=== PATIENT | male | born 1950 | race Caucasian/White ===

== ENCOUNTER 2016-11-15 12:51 | Outpatient (CLI) | payer OTHER ==
[2016-11-15 13:13] LABS: CALCIUM 9.5 mg/dL (8.5-10.3); CREATININE 1.1 mg/dL (0.6-1.2); POTASSIUM 3.2 mmol/L (3.5-5.0)
== END 2016-11-15 12:52 | disposition home or self-care (01) ==
LOC: LAB 12:51
PROVIDERS: ATTEND Internal Medicine
DX: I10 Essential (primary) hypertension (principal)
CPT/HCPCS: 36415; 80048

== ENCOUNTER 2016-12-24 09:17 | Outpatient (CLI) | payer OTHER, MEDICARE | END 2016-12-24 09:18 | disposition home or self-care (01) | LOC: SC 09:17 | PROVIDERS: ATTEND Internal Medicine Pulmonary Disease | DX: G47.33 Obstructive sleep apnea (adult) (pediatric) (principal) | CPT/HCPCS: 99203; 99212 ==

== ENCOUNTER 2016-12-24 15:34 | Outpatient (CLI) | payer MEDICARE, OTHER ==
[2016-12-24 12:14] LABS: BUN - BLOOD UREA NITROGEN 33 mg/dL (6-20); CALCIUM 9.4 mg/dL (8.5-10.3); CARBON DIOXIDE - CO2 27 mmol/L (21-32); CHLORIDE 102 mmol/L (101-111); CHOL/HDL RATIO 5.2 (<5.0); CHOLESTEROL 160 mg/dL; CREATININE 1.3 mg/dL (0.6-1.2); GFR - MDRD 55 (>89); GLUCOSE 109 mg/dL (70-100); HDL CHOLESTEROL 31 mg/dL; LDL/HDL RATIO 3.1 (<3.6); POTASSIUM 3.9 mmol/L (3.5-5.0); SODIUM 137 mmol/L (135-145); TRIGLYCERIDES 171 mg/dL; VLDL CHOLESTEROL 34 mg/dL
== END 2016-12-24 15:35 | disposition home or self-care (01) ==
LOC: LAB.F 15:34
PROVIDERS: ATTEND Internal Medicine
DX: E87.6 Hypokalemia (principal); E78.00 Pure hypercholesterolemia, unspecified
CPT/HCPCS: 36415; 80048; 80061

== ENCOUNTER 2017-01-15 19:36 | Outpatient (CLI) | payer OTHER, MEDICARE | END 2017-01-15 19:37 | disposition home or self-care (01) | LOC: SC 19:36 | PROVIDERS: ATTEND Internal Medicine Pulmonary Disease | DX: G47.33 Obstructive sleep apnea (adult) (pediatric) (principal); R09.02 Hypoxemia; Z68.34 Body mass index [BMI] 34.0-34.9, adult | CPT/HCPCS: 95810 ==

== ENCOUNTER 2017-01-23 11:58 | Outpatient (CLI) | payer OTHER, MEDICARE ==
--- NOTE | 2017-01-24 09:15 | CT Report ---
CT SINUSES WITHOUT CONTRAST: 01/23/2017 CLINICAL INDICATION: Right eye pain, sinus pain. TECHNIQUE: Axial CT images of the paranasal sinuses were obtained without contrast, following which sagittal and coronal reconstructions were performed. In accordance with CT protocol optimization, one or more of the following dose reduction techniques w ere utilized for this exam: automated exposure control, adjustment of mA and/or KV based on patient size, or use of iterative reconstructive technique. FINDINGS: There is complete opacification of the right maxillary sinus and extensive opacification o f the anterior right ethmoid air cells. Extensive mucosal thickening is also present in the right fr ontal sinus. There is mild opacification of left anterior ethmoid air cells. Minimal mucosal thicke gloria is seen in the left frontal sinus. The left maxillary sinus and the sphenoid sinus appear unrem arkable. There is attenuation of the medial wall of the right maxillary sinus and right ethmoid air cells, suspicious for osseous erosion. The left ostiomeatal unit is patent. The visualized intraorb ital contents are unremarkable. IMPRESSION: EXTENSIVE RIGHT MAXILLARY, ETHMOID, AND FRONTAL SINUS DISEASE, WITH SOME OSSEOUS EROSION . JOB #: [id number] EXT JOB #:[id number]
== END 2017-01-23 11:59 | disposition home or self-care (01) ==
LOC: DI 11:58
PROVIDERS: ATTEND Physician Assistant Medical
DX: J32.8 Other chronic sinusitis (principal); M85.88 Other specified disorders of bone density and structure, other site
CPT/HCPCS: 70486

== ENCOUNTER 2017-02-07 13:59 | Outpatient (CLI) | payer MEDICARE, OTHER | END 2017-02-07 14:00 | disposition home or self-care (01) | LOC: SC 13:59 | PROVIDERS: ATTEND Internal Medicine Pulmonary Disease | DX: G47.33 Obstructive sleep apnea (adult) (pediatric) (principal) | CPT/HCPCS: 99212; 99213 ==

== ENCOUNTER 2017-02-26 12:53 | Outpatient (CLI) | payer OTHER ==
[2017-02-26 13:03] LABS: BASOPHILS # (AUTO) 0.1 10^3/uL (0.0-0.1); BASOPHILS % (AUTO) 0.6 %; EOSINOPHILS # (AUTO) 0.2 10^3/uL (0.0-0.7); HCT - HEMATOCRIT 39.7 % (42.0-52.0); HGB - HEMOGLOBIN 13.4 g/dL (14.0-18.0); LYMPHOCYTES # (AUTO) 3.3 10^3/uL (1.5-3.5); LYMPHOCYTES % (AUTO) 28.9 %; MEAN CORPUSCULAR HEMOGLOBIN 29.5 pg (27.0-31.0); MEAN CORPUSCULAR HGB CONC 33.7 g/dL (32.0-36.0); MEAN CORPUSCULAR VOLUME 87.4 fL (80.0-94.0); MEAN PLATELET VOLUME 6.8 fL (7.4-11.4); MONOCYTES # (AUTO) 0.9 10^3/uL (0.0-1.0); MONOCYTES % (AUTO) 7.5 %; NUCLEATED RED BLOOD CELLS AUTO 0.1 /100WBC; RED BLOOD COUNT 4.54 10^6/uL (4.70-6.10); RED CELL DISTRIBUTION WIDTH 13.9 % (12.0-15.0); UNCORRECTED WHITE BLOOD COUNT 11.4 x10^3/uL; WHITE BLOOD COUNT 11.4 x10^3/uL (4.8-10.8)
[2017-02-26 13:31] LABS: ALBUMIN/GLOBULIN RATIO 1.3 (1.0-2.2); BILIRUBIN,TOTAL 0.6 mg/dL (0.2-1.0); CALCIUM 9.5 mg/dL (8.5-10.3); CREATININE 1.3 mg/dL (0.6-1.2); POTASSIUM 3.7 mmol/L (3.5-5.0); TOTAL PROTEIN 7.4 g/dL (6.7-8.2)
== END 2017-02-26 12:54 | disposition home or self-care (01) ==
LOC: LAB 12:53
PROVIDERS: ATTEND Internal Medicine
DX: I10 Essential (primary) hypertension (principal)
CPT/HCPCS: 36415; 80053; 85025

== ENCOUNTER 2017-08-20 18:37 | Inpatient (IN) | payer MEDICARE, OTHER ==
[2017-08-20] MEDS ORDERED: SODIUM CHLORIDE 0.9% 1,000 ML IV ONE (19:03)
[2017-08-20] MEDS ORDERED: PANTOPRAZOLE 40 MG VIAL IVP STA (19:03)
--- NOTE | 2017-08-20 19:06 | ED Physician Documentation ---
History of Present Illness - Stated complaint Stated Complaint: LOW BLOOD PRESSURE - Chief complaint Chief Complaint: General - History obtained from History obtained from: Patient - History of Present Illness Timing: Other (He has a history of hypertension and sleep apnea. Starting about a week ago after being on Augmentin for wisdom tooth removal, maybe a day or 2 later, he started having loose but tarry and black stools. Over the last couple of days has developed orthostatic lightheadedness and when he is getting that lightheadedness he developed substernal chest pressure that lasts about 15 minutes at a time. He has no chest pain right now. He has noted low blood pressures at home, as low as 90/40.) Review of Systems Constitutional: reports: Fatigue. denies: Fever, Chills Nose: denies: Rhinorrhea / runny nose, Congestion Cardiac: reports: Chest pain / pressure. denies: Palpitations Respiratory: denies: Dyspnea, Cough GI: reports: Bloody / black stool. denies: Abdominal Pain, Nausea, Vomiting, Constipation, Hematemesis PD PAST MEDICAL HISTORY - Past Medical History Past Medical History: Yes Cardiovascular: Hypertension - Present Medications Home Medications: Ambulatory Orders Medication Instructions Recorded Confirmed Amlodipine Besylate 5 mg PO DAILY 08/20/17 08/20/17 Aspirin Chewable [[place] 81 mg PO DAILY 08/20/17 08/20/17 Aspirin] Chlorthalidone 0 mg PO DAILY 08/20/17 08/20/17 Cholecalciferol (Vitamin D3) 2,000 units PO DAILY 08/20/17 08/20/17 [Vitamin D3] Lactobacillus Acidophilus 1 each PO PRN PRN 08/20/17 08/20/17 [Probiotic Acidophilus] Lisinopril 40 mg PO DAILY 08/20/17 08/20/17 Spironolactone 25 mg PO QPM 08/20/17 08/20/17 Verapamil HCl [Verelan] 360 mg PO QPM 08/20/17 08/20/17 - Allergies Allergies/Adverse Reactions: Allergies Allergy/AdvReac Type Severity Reaction Status Date / Time No Known Drug Allergies Allergy Verified 08/20/17 18:46 - Living Situation Living Situation: reports: With spouse/s.o. - Social History Does the pt smoke?: No Does the pt drink ETOH?: Yes ETOH Use: Other (Very occasional, 5 beers a year) Does the pt have substance abuse?: No - Family History Family history: reports: Non contributory PD ED PE NORMAL - Vitals Vital signs reviewed: Yes - General General: Alert and oriented X 3, No acute distress, Other (On orthostatics he goes down to 78/31 on standing) - HEENT HEENT: PERRL, EOMI - Neck Neck: Supple, no meningeal sign, No bony TTP - Cardiac Cardiac: RRR, No murmur - Respiratory Respiratory: No respiratory distress, Clear bilaterally - Abdomen Abdomen: Normal bowel sounds, Soft, Non tender - Rectal Rectal: Other (Melena from below, very guaiac positive.) - Back Back: No CVA TTP, No spinal TTP - Derm Derm: Normal color, Warm and dry - Extremities Extremities: No edema, No calf tenderness / cord - Neuro Neuro: Alert and oriented X 3, Normal speech - Psych Psych: Normal mood, Normal affect Results - Vitals Vitals: Vital Signs - 24 hr 08/20/17 08/20/17 08/20/17 18:41 18:55 19:49 Temperature 36.6 C Heart Rate 104 H 92 85 Respiratory 18 26 H Rate Blood Pressure 116/49 L 114/41 L 114/48 L O2 Saturation 100 98 Oxygen O2 Source Room air - EKG (time done) 1849 Rate: Rate (enter#) (92) Rhythm: NSR [place]: Normal Intervals: Normal NC QRS: Normal Ischemia: ST elevation c/w repol (ST depression V2 through V5). No: ST elevation c/w ischemia Computer interpretation: Agree with computer - Labs Labs: Laboratory Tests 08/20/17 08/20/17 08/20/17 19:10 19:10 19:10 WBC 18.9 H RBC 2.91 L Hgb 8.2 L Hct 25.6 L MCV 87.9 MCH 28.3 MCHC 32.2 RDW 13.7 Plt Count 378 MPV 7.2 L Neut # 13.9 H Lymph # 3.4 [place] # 1.5 H Eos # 0.1 Baso # 0.1 Absolute Nucleated RBC 0.00 Nucleated RBC % 0.0 PT 13.0 H INR 1.2 Sodium 130 L Potassium 3.8 Chloride 97 L Carbon Dioxide 21 Anion Gap 12.0 BUN 89 H* Creatinine 1.7 H Estimated GFR (MDRD) 40 L Glucose 155 H Calcium 9.1 Total Bilirubin 0.5 AST 17 ALT 17 Alkaline Phosphatase 26 L Troponin I Total Protein 6.0 L Albumin 3.5 Globulin 2.5 Albumin/Globulin Ratio 1.4 Lipase 23 Blood Type Blood Type Recheck Antibody Screen Crossmatch IS Only 08/20/17 08/20/17 08/20/17 19:10 19:10 19:29 WBC RBC Hgb Hct MCV MCH MCHC RDW Plt Count MPV Neut # Lymph # [place] # Eos # Baso # Absolute Nucleated RBC Nucleated RBC % PT INR Sodium Potassium Chloride Carbon Dioxide Anion Gap BUN Creatinine Estimated GFR (MDRD) Glucose Calcium Total Bilirubin AST ALT Alkaline Phosphatase Troponin I < 0.04 Total Protein Albumin Globulin Albumin/Globulin Ratio Lipase Blood Type A POSITIVE Blood Type Recheck A POSITIVE Antibody Screen NEGATIVE Crossmatch IS Only See Detail PD MEDICAL DECISION MAKING - ED course ED course: 67-year-old gentleman with symptoms and signs consistent with an upper GI bleed. He does have some substernal chest pressure when he gets symptomatic, but his troponin is negative. His EKG is not Grossly ischemic but not quite normal either. He was administered IV fluids. Blood was readied. He was administered IV Protonix. I spoke with the on-call surgeon, Dr. Wray for potential endoscopy at 7:[address] Israel for admission at 7:55 PM. Departure - Departure Disposition: [facility] DC/Xfer Clinical Impression: Anemia, posthemorrhagic, acute GI bleed Qualifiers: GI bleed type/associated pathology: unspecified gastrointestinal hemorrhage type Qualified Code(s): K92.2 - Gastrointestinal hemorrhage, unspecified Condition: Serious Discharge Date/Time: 08/20/17 20:20
[2017-08-20 19:25] LABS: BASOPHILS # (AUTO) 0.1 10^3/uL (0.0-0.1); BASOPHILS % (AUTO) 0.3 %; EOSINOPHILS # (AUTO) 0.1 10^3/uL (0.0-0.7); EOSINOPHILS % (AUTO) 0.4 %; HGB - HEMOGLOBIN 8.2 g/dL (14.0-18.0); LYMPHOCYTES # (AUTO) 3.4 10^3/uL (1.5-3.5); LYMPHOCYTES % (AUTO) 17.8 %; MEAN CORPUSCULAR HEMOGLOBIN 28.3 pg (27.0-31.0); MEAN CORPUSCULAR HGB CONC 32.2 g/dL (32.0-36.0); MEAN CORPUSCULAR VOLUME 87.9 fL (80.0-94.0); MEAN PLATELET VOLUME 7.2 fL (7.4-11.4); MONOCYTES # (AUTO) 1.5 10^3/uL (0.0-1.0); MONOCYTES % (AUTO) 7.9 %; NEUTROPHILS # (AUTO) 13.9 10^3/uL (1.5-6.6); NEUTROPHILS % (AUTO) 73.6 %; PLT - PLATELET COUNT 378 10^3/uL (130-450); RED BLOOD COUNT 2.91 10^6/uL (4.70-6.10); RED CELL DISTRIBUTION WIDTH 13.7 % (12.0-15.0); WHITE BLOOD COUNT 18.9 x10^3/uL (4.8-10.8)
[2017-08-20 19:31] LABS: INR 1.2 (0.8-1.2)
[2017-08-20 19:50] LABS: ALBUMIN 3.5 g/dL (3.2-5.5); ALBUMIN/GLOBULIN RATIO 1.4 (1.0-2.2); BILIRUBIN,TOTAL 0.5 mg/dL (0.2-1.0); CALCIUM 9.1 mg/dL (8.5-10.3); CREATININE 1.7 mg/dL (0.6-1.2)
[2017-08-20] MEDS ORDERED: PROCHLORPERAZINE 10 MG/2 ML VIAL IVP PRN (19:55)
[2017-08-20] MEDS ORDERED: SODIUM CHLORIDE FLUSH 0.9% 10 ML SYRINGE IVP PRN (19:55)
[2017-08-20] MEDS ORDERED: oxyCODONE 5 MG TABLET PO PRN (19:55)
[2017-08-20] MEDS ORDERED: TEMAZEPAM 15 MG CAPSULE PO PRN (19:55)
--- NOTE | 2017-08-20 21:39 | HISTORY & PHYSICAL EXAMINATION ---
Chief Complaint - Chief Complaint Chief Complaint: dizziness and chest pain History of Present Illness - Admitted From Admitted From:: home - History Obtained From Records Reviewed: yes History obtained from: patient and Dr. Lopez - History of Present Illness HPI Comment/Other: Mr. Esvin Olmos is a pleasant 67-year-old gentleman with a history of hypertension who had a wisdom tooth pulled about a week ago. Since that time he has had dizziness and chest pain, dark tarry stools, and chronic diarrhea. At one point he was placed on Augmentin following the dental surgery and he believes that the Augmentin may have caused the diarrhea and other symptoms. He came into the emergency department at [facility] today and was found to be very hypotensive with a blood pressure of 70/30, significant anemia going from an average of about 14 down to 8.2 today, and an elevated creatinine and white blood cell count. History - Past Medical History Cardiovascular: reports: Hypertension Respiratory: reports: CPAP use Neuro: reports: None Endocrine/Autoimmune: reports: None GI: reports: None : reports: None HEENT: reports: Chronic vision loss, Chronic sinusitis Psych: reports: None Musculoskeletal: reports: None Derm: reports: None MRSA Hx?: No Other Past Medical History: Polyps removed 08/08. [place] tooth removal 08/13/17 - Past Surgical History General: reports: Appendectomy - Family & Social History Living Situation: With spouse/s.o. - Substance History Use: Uses substance without health or social issues: Alcohol Abuse: Recurrent use of substance despite neg consequences: NONE Dependence: Experiences withdrawal or developed tolerances: NONE - POLST Patient has POLST: No POLST Status: Full Code Meds/Allgy - Home Medications Home Medications: Ambulatory Orders Medication Instructions Recorded Confirmed Amlodipine Besylate 5 mg PO DAILY 08/20/17 08/20/17 Aspirin Chewable [[place] 81 mg PO DAILY 08/20/17 08/20/17 Aspirin] Chlorthalidone 0 mg PO DAILY 08/20/17 08/20/17 Cholecalciferol (Vitamin D3) 2,000 units PO DAILY 08/20/17 08/20/17 [Vitamin D3] Lactobacillus Acidophilus 1 each PO PRN PRN 08/20/17 08/20/17 [Probiotic Acidophilus] Lisinopril 40 mg PO DAILY 08/20/17 08/20/17 Spironolactone 25 mg PO QPM 08/20/17 08/20/17 Verapamil HCl [Verelan] 360 mg PO QPM 08/20/17 08/20/17 - Allergies Allergies/Adverse Reactions: Allergies Allergy/AdvReac Type Severity Reaction Status Date / Time No Known Drug Allergies Allergy Verified 08/20/17 18:46 Review of Systems - Constitutional Constitutional: reports: Fatigue, Malaise, Weakness, Poor appetite. denies: Fever, Chills, Night sweats - Eyes Eyes: denies: Pain, Irritation, Amaurosis, Blurred vision, Vision loss, Dipolpia - Ears, Nose & Throat Ears, Nose & Throat: denies: Ear pain, Hearing loss, Hearing aids, Tinnitus, Vertigo, Nasal pain, Nasal discharge - Cardiovascular Cariovascular: denies: Irregular heart rate, Palpitations, Chest pain, Edema - Respiratory Respiratory: reports: SOB at rest, SOB with exertion. denies: Cough, Sputum production, Wheezing, Snoring - Gastrointestinal Gastrointestinal: denies: Abdominal pain, Abdominal distention, Constipation, Diarrhea, Change in bowel habits, Rectal bleeding - Genitourinary Genitourinary: denies: Dysuria, Frequency, Urgency, Hematuria - Musculoskeletal Musculoskeletal: denies: Muscle pain, Back pain, Muscle aches, Stiffness - Integumentary Integumentary: denies: Rash, Pruritis, Lesions, Dryness - Neurological Neurological: denies: General weakness, Focal weakness, Headache, Dizziness - Psychiatric Psychiatric: denies: Depression, Anxiety, Suicidal, Hallucinations - Endocrine Endocrine: denies: Polyuria, Polydypsia, Polyphagia - Hematologic/Lymphatic Hematologic/Lymphatic: denies: Anemia, Bruising, Petechiae, Lymphadenopathy - All Other Systems All Other Systems: reports: Reviewed and negative Exam - Vital Signs Reviewed Vital Signs: Yes Vital Signs: Vital Signs x48h Temp Pulse Pulse Resp BP BP Pulse Ox 08/20/17 20:43 36.5 C 92 18 126/65 100 08/20/17 20:20 36.4 C L 82 18 113/49 L 97 - Physical Exam General Appearance: positive: No acute distress, Alert, Mild distress Eyes Bilateral: positive: Normal inspection, PERRL, EOMI, No lid inflammation, Conjunctivae nml, No scleral icterus ENT: positive: ENT inspection nml, Pharynx nml, No signs of dehydration Neck: positive: Nml inspection, Thyroid nml, No JVD, Trachea midline. negative : Thyromegaly Respiratory: positive: Chest non-tender, No respiratory distress, Breath sounds nml. negative: Wheezes, Rales, Rhonchi Cardiovascular: positive: Regular rate & rhythm, No murmur, No gallop Peripheral Pulses: positive: 1+ Abdomen: positive: Non-tender, No organomegaly, Nml bowel sounds, No distention. negative: Guarding, Rebound Rectal: positive: Non-tender, Stool - heme POS, Black stool Back: positive: Nml inspection. negative: CVA tenderness (R), CVA tenderness (L ) Skin: positive: Color nml, No rash, Warm, Dry. negative: Cyanosis Extremities: positive: Non-tender, Full ROM, Nml appearance Neurologic/Psychiatric: positive: Oriented x3, CN's nml (2-12), Motor nml, Sensation nml, Mood/affect nml Conclusion/Plan - Problem List (1) Anemia, posthemorrhagic, acute Conclusion/Plan: The patient appears to be bleeding internally. We will schedule an endoscopy and colonoscopy for him tomorrow. We will transfuse the patient 1 unit of packed red blood cells at this time. (2) GI bleed Conclusion/Plan: We are currently transfusing, the patient has been placed on proton pump inhibitors, and we will have an upper and lower endoscopy done tomorrow by Dr. Wray. Qualifiers: GI bleed type/associated pathology: unspecified gastrointestinal hemorrhage type (3) Acute kidney injury Conclusion/Plan: Likely related to dehydration. We will gently rehydrate the patient and monitor his electrolytes and renal function. - Lab Results Fish Bones: 08/20/17 19:10 08/20/17 19:10
[2017-08-21] MEDS: SODIUM CHLORIDE FLUSH 0.9% 10 ML SYRINGE IVP SCH ×5 (00:45→23:56)
[2017-08-21] MEDS: D5.45NS W/20 MEQ KCL 1,000 ML IV SCH ×3 (00:46→19:12)
[2017-08-21 05:52] LABS: HGB - HEMOGLOBIN 7.6 g/dL (14.0-18.0); MEAN CORPUSCULAR HEMOGLOBIN 29.1 pg (27.0-31.0); MEAN CORPUSCULAR HGB CONC 33.2 g/dL (32.0-36.0); MEAN CORPUSCULAR VOLUME 87.7 fL (80.0-94.0); MEAN PLATELET VOLUME 7.2 fL (7.4-11.4); RED BLOOD COUNT 2.62 10^6/uL (4.70-6.10); RED CELL DISTRIBUTION WIDTH 13.6 % (12.0-15.0); WHITE BLOOD COUNT 14.6 x10^3/uL (4.8-10.8)
[2017-08-21 05:59] LABS: CALCIUM 8.5 mg/dL (8.5-10.3); CREATININE 1.6 mg/dL (0.6-1.2)
[2017-08-21] MEDS ORDERED: ASPIRIN CHEW 81 MG TABLET PO SCH (09:00)
[2017-08-21] MEDS ORDERED: POLYETHYLENE GLYCOL 3350 17 GM PACKET PO SCH (09:00)
[2017-08-21] MEDS: amLODIPine 5 MG TABLET PO SCH (11:04)
[2017-08-21] MEDS ORDERED: LACTATED RINGERS 1,000 ML IV ONE ×2 (11:48→12:11)
[2017-08-21] MEDS ORDERED: BENZOCAINE/TETRACAINE/BUTAMBEN SPRAY 56 GM TOP ONE (11:50)
[2017-08-21] MEDS ORDERED: EPINEPHrine ABBOJECT 1 MG/10 ML SYRINGE ONE (12:31)
[2017-08-21] MEDS ORDERED: SODIUM CHLORIDE 0.9% 500 ML IV ONE (13:14)
[2017-08-21] MEDS ORDERED: NEOSTIGMINE 1 MG/1 ML 10 ML MDV IVP ONE (13:19)
[2017-08-21] MEDS ORDERED: GLYCOPYRROLATE 1 MG/5 ML VIAL IVP ONE (13:19)
[2017-08-21] MEDS ORDERED: ROCURONIUM 50 MG/5 ML VIAL IVP ONE (13:19)
[2017-08-21] MEDS ORDERED: PROPOFOL 200 MG/20 ML VIAL IVP ONE (13:19)
[2017-08-21] MEDS ORDERED: EPINEPHrine 1 MG/ML AMP IVP ONE (13:21)
[2017-08-21] MEDS ORDERED: MEPERIDINE 50 MG/ML SYRINGE ONE (13:58)
[2017-08-21] MEDS ORDERED: SODIUM CHLORIDE FLUSH 0.9% 10 ML SYRINGE ONE (13:59)
[2017-08-21] MEDS: PANTOPRAZOLE 40 MG VIAL IVP SCH (18:04)
[2017-08-21] MEDS: SUCRALFATE 1 GM/10 ML UDC PO SCH ×3 (18:04→21:07)
[2017-08-21] MEDS ORDERED: SPIRONOLACTONE 25 MG TABLET PO SCH (21:00)
--- NOTE | 2017-08-21 21:46 | PROVIDER PROGRESS NOTE ---
Subjective - Prog Note Date Prog Note Date: 08/21/17 Prog Note Time: 17:00 - Subjective Pt reports feeling: Improved Subjective: Donovan is interested in eating more, and otherwise has no complaints. He denies SOB, chest pain, N/V, bleeding, or a new cough. Current Medications - Current Medications Current Medications: Active Medications Amlodipine Besylate (Norvasc) 5 mg PO DAILY [facility] Last Admin: 08/21/17 11:04 Dose: Not Given Potassium Chloride/Dextrose/Sod Cl (D5.45ns W/20 Meq Kcl) 1,000 mls @ 100 mls/ hr IV .Q10H [facility] Last Infusion: 08/21/17 19:59 Dose: 100 mls/hr Pantoprazole Sodium (Protonix) 40 mg IVP QDAC [facility] Last Admin: 08/21/17 18:04 Dose: 40 mg Prochlorperazine Edisylate (Compazine Inj) 10 mg IVP Q6HR PRN PRN Reason: Nausea / Vomiting Sodium Chloride (Normal Saline Flush 0.9%) 10 ml IVP PRN PRN PRN Reason: NEEDED PER PROVIDER ORDERS Sodium Chloride (Normal Saline Flush 0.9%) 10 ml IVP 0100,0900,1700 [facility] Last Admin: 08/21/17 19:12 Dose: 10 ml Spironolactone (Aldactone) 25 mg PO QPM [facility] Last Admin: 08/21/17 21:07 Dose: 25 mg Sucralfate (Carafate) 1 gm PO 0700,1100,1600,2200 [facility] Last Admin: 08/21/17 21:07 Dose: 1 gm Amlodipine Besylate 5 mg PO DAILY 08/20/17 Aspirin Chewable [[place] Aspirin] 81 mg PO DAILY 08/20/17 Chlorthalidone 25 mg PO DAILY 08/20/17 Cholecalciferol (Vitamin D3) [Vitamin D3] 2,000 units PO DAILY 08/20/17 Lactobacillus Acidophilus [Probiotic Acidophilus] 1 each PO PRN PRN 08/20/17 Lisinopril 40 mg PO QPM 08/20/17 Spironolactone 25 mg PO QPM 08/20/17 Verapamil HCl [Verelan] 360 mg PO QPM 08/20/17 Objective - Vital Signs/Intake & Output Reviewed Vital Signs: Yes Vital Signs: Vital Signs x48h Temp Pulse Pulse Resp BP BP BP 08/21/17 19:35 36.4 C L 100 16 107/51 L 08/21/17 17:40 36.5 C 92 18 135/51 H 08/21/17 17:01 37.3 C 96 18 123/54 L 08/21/17 15:58 36.9 C 86 24 131/57 H 08/21/17 15:01 36.6 C 74 20 136/51 H 08/21/17 15:00 36.6 C 84 20 136/51 H 08/21/17 14:45 36.7 C 92 16 98/76 08/21/17 14:31 36.7 C 92 16 98/76 08/21/17 13:58 08/21/17 13:50 08/21/17 13:40 Pulse Ox 08/21/17 19:35 98 08/21/17 17:40 08/21/17 17:01 97 08/21/17 15:58 100 08/21/17 15:01 98 08/21/17 15:00 08/21/17 14:45 08/21/17 14:31 95 08/21/17 13:58 95 08/21/17 13:50 96 08/21/17 13:40 19 L Intake & Output: Intake & Output 08/18/17 08/19/17 08/20/17 08/21/17 23:59 23:59 23:59 23:59 Intake Total 450 2374.333 Output Total 725 Balance 450 1649.333 - Objective General Appearance: positive: No acute distress, Alert Eyes Bilateral: positive: Normal inspection Eyes: OU Conjunctivae pale ENT: positive: ENT inspection nml, Pharynx nml, No signs of dehydration Neck: positive: Nml inspection, Thyroid nml, No JVD Respiratory: positive: Chest non-tender, No respiratory distress, Breath sounds nml Cardiovascular: positive: Regular rate & rhythm, No gallop, Systolic murmur, Decreased pulse(s) Peripheral Pulses: 2+ Radial (R), 2+ Radial (L) Abdomen: positive: Tenderness, Guarding, Abnml bowel sounds Back: positive: Nml inspection Skin: positive: No rash, Warm, Dry Extremities: positive: Non-tender, Full ROM, Nml appearance, Pedal edema Neurologic/Psychiatric: positive: Oriented x3, CN's nml (2-12), Motor nml, Sensation nml, Depressed mood/affect Reflexes: Bicep (R): 2+, Bicep (L): 2+ - Lab Results Fish Bones: 08/22/17 05:35 08/22/17 05:35 Other Labs: Lab Results x24hrs 08/21/17 08/21/17 08/21/17 Range/Units 19:48 05:23 05:23 WBC 14.6 H (4.8-10.8) x10^3/uL RBC 2.62 L (4.70-6.10) 10^6/uL Hgb 10.0 L 7.6 L (14.0-18.0) g/dL Hct 29.8 L 23.0 L (42.0-52.0) % MCV 87.7 (80.0-94.0) fL MCH 29.1 (27.0-31.0) pg MCHC 33.2 (32.0-36.0) g/dL RDW 13.6 (12.0-15.0) % Plt Count 272 (130-450) 10^3/uL MPV 7.2 L (7.4-11.4) fL Sodium 133 L (135-145) mmol/L Potassium 3.6 (3.5-5.0) mmol/L Chloride 104 (101-111) mmol/L Carbon Dioxide 20 L (21-32) mmol/L Anion Gap 9.0 (6-13) BUN 84 H* (6-20) mg/dL Creatinine 1.6 H (0.6-1.2) mg/dL Estimated GFR (MDRD) 43 L (>89) Glucose 142 H (70-100) mg/dL Calcium 8.5 (8.5-10.3) mg/dL - Diagnostic Imaging Diagnostic Imaging Results: positive: Final report reviewed Assessment/Plan - Problem List (1) GI bleed Impression: Patient was admitted to the hospital for this reason. He underwent an EGD with Dr. Wray who noted the patient to have ulcers in his stomach. Biopsy and cauterization were performed. Plan: Replace blood loss and monitor. Await biopsy results. Qualifiers: GI bleed type/associated pathology: unspecified gastrointestinal hemorrhage type Qualified Code(s): K92.2 - Gastrointestinal hemorrhage, unspecified (3) TERRA (obstructive sleep apnea) Impression: Patient has had this condition for several years and this can be evidenced on most recent echo, which shows high right heart pressures and a RVSP at rest of 47mmHg. Patient has his own home unit that is new within the last year. Plan: Continue to use home CPAP, patient seems to be compliant. (4) Pulmonary hypertension Impression: The most recent echo shows high right heart pressures and a RVSP at rest of 47mmHg. Patient appears to be on 2 medications for this including Chlorthalidone and Spironolactone daily dosing. Plan: Continue here, but may discontinue Chlorthalidone and double the Sprionolactone dose for home use. (5) Anemia, posthemorrhagic, acute Impression: Patient's H & H reached a low of 7.6 and 23, so he was given 2 units of PRBCs per GI, Dr. Wray. For this reason, he will stay one more night in the hospital to ensure he is stabilized. Plan: Continue giving replacement blood, and monitor blood counts.
--- NOTE | 2017-08-22 02:04 | CONSULTATION NOTE ---
DATE OF SERVICE: 08/21/2017 Physician: Todd Wray MD REASON FOR CONSULTATION: Gastrointestinal bleeding. HISTORY OF PRESENT ILLNESS: The patient is a 67-year-old male who presents with about a 5 day history of black tarry stools. This is first time he has had this. He denies any abdominal pain, nausea, vomiting, reflux disease. His last colonoscopy was 3 years ago, in which a benign polyp was removed. Because of him feeling dizzy and weakness, he came to the emergency room to be evaluated. He was found to have a hemoglobin of 8.2 with a systolic blood pressure in the 70s He was given IV fluids with the blood pressure increasing. He was then admitted to the hospital for further workup of his anemia. PAST MEDICAL HISTORY 1. Hypertension. 2. Sleep apnea, with CPAP need. MEDICATIONS 1. Amlodipine. 2. Aspirin. 3. Chlorthalidone. 4. Lisinopril. 5. Spironolactone. 6. Verapamil. ALLERGIES TO MEDICATIONS: NONE. PAST SURGICAL HISTORY: Appendectomy. SOCIAL HISTORY: The patient lives with his spouse. HABITS: The patient socially uses alcohol. Denies any drug use or smoking history. FAMILY HISTORY: Noncontributory. REVIEW OF SYSTEMS CONSTITUTIONAL: Not feeling well. Weak. GASTROINTESTINAL: Black stools. A 12-point review of systems was obtained with pertinent positives discussed and all others being negative. PHYSICAL EXAMINATION VITAL SIGNS: Temperature is 36.8. Blood pressure 108/43. Pulse is 68. GENERAL: The patient is an elderly male in no distress at the current time. He is cooperative and appears to answer questions fully. EYES: Nonicteric. NECK: No lymphadenopathy. HEART: Regular. LUNGS: Clear. BACK: Nontender. ABDOMEN: Soft, nontender. EXTREMITIES: No edema or cyanosis. NEUROLOGIC: The patient appears to be neurologically intact without any deficit. PSYCHOLOGICAL: The patient is coherent, cooperative, and appears to answer questions fully. DIAGNOSTIC DATA: Sodium 133, BUN 84, creatinine 1.6, hemoglobin 7.6. White blood cell count of 14.6. ASSESSMENT 1. Weakness, with the patient being anemic and having black stools. He most likely has upper gastrointestinal bleeding. I have recommended that he undergo esophagogastroduodenoscopy with possible control of bleeding, biopsy. The risks and possible complications of the procedure have been explained to him and include, but not limited to bleeding, infection, anesthesia risk, heart and lung problems, wound healing problems, unable to control the bleeding, needing surgery, rebleeding if controlled, injuries to the upper gastrointestinal tract causing morbidity and need for further intervention, aspiration with possible pneumonia and issues, risks, heart and lung problems. The patient accepts the risks and wishes to proceed. No guarantees were given or implied. 2. Renal insufficiency, which may be related to dehydration, continued hydration. 3. Hypertension. 4. Sleep apnea, on CPAP. Procedure will be done with MAC anesthesia. PLAN 1. N.p.o. 2. Transfuse as necessary. 3. Esophagogastroduodenoscopy with possible biopsy or control of bleeding. TD: 08/22/2017 02:03 KARYNA
[2017-08-22] MEDS: D5.45NS W/20 MEQ KCL 1,000 ML IV SCH (05:16)
[2017-08-22 05:52] LABS: HGB - HEMOGLOBIN 9.6 g/dL (14.0-18.0); MEAN CORPUSCULAR HEMOGLOBIN 29.5 pg (27.0-31.0); MEAN CORPUSCULAR HGB CONC 33.7 g/dL (32.0-36.0); MEAN CORPUSCULAR VOLUME 87.6 fL (80.0-94.0); MEAN PLATELET VOLUME 7.1 fL (7.4-11.4); RED BLOOD COUNT 3.27 10^6/uL (4.70-6.10); RED CELL DISTRIBUTION WIDTH 13.6 % (12.0-15.0); WHITE BLOOD COUNT 16.3 x10^3/uL (4.8-10.8)
[2017-08-22 05:57] LABS: CALCIUM 8.5 mg/dL (8.5-10.3); CREATININE 1.1 mg/dL (0.6-1.2)
[2017-08-22] MEDS: SUCRALFATE 1 GM/10 ML UDC PO SCH ×2 (06:27→10:58)
[2017-08-22] MEDS: PANTOPRAZOLE 40 MG VIAL IVP SCH (06:30)
[2017-08-22 07:28] VITALS: BP 122/58
[2017-08-22] MEDS: amLODIPine 5 MG TABLET PO SCH (08:01)
[2017-08-22] MEDS: SODIUM CHLORIDE FLUSH 0.9% 10 ML SYRINGE IVP SCH (08:02)
--- NOTE | 2017-08-22 08:31 | DISCHARGE SUMMARY ---
Discharge Summary Admit Date: 08/20/17 Discharge Date: 08/22/17 Discharging Provider: EVAN Tovar Primary Care Provider: Brenda Norris Code Status: Attempt Resuscitation Condition at Discharge: Good Discharge Disposition: 01 Home, Self Care - DIAGNOSES Admission Diagnoses: Gastrointestinal hemorrhage, unspecified (K92.2) Acute kidney failure, unspecified (N17.9) Discharge Diagnoses with Status of Each Condition: GI bleed (K92.2) resolved. Acute renal failure superimposed on stage 1 chronic kidney disease (N17.9) chronic, stable. TERRA (obstructive sleep apnea) (G47.33) chronic, stable. Pulmonary hypertension (I27.20) chronic,stable. Anemia, posthemorrhagic, acute (D62) resolved. - HPI History of Present Illness: Mr. Esvin Olmos is a pleasant 67-year-old gentleman with a history of hypertension who had a wisdom tooth pulled about a week ago. Since that time he has had dizziness and chest pain, dark tarry stools, and chronic diarrhea. At one point he was placed on Augmentin following the dental surgery and he believes that the Augmentin may have caused the diarrhea and other symptoms. He came into the emergency department at [facility] today and was found to be very hypotensive with a blood pressure of 70/30, significant anemia going from an average of about 14 down to 8.2 today, and an elevated creatinine and white blood cell count. - HOSPITAL COURSE Hospital Course: The following diagnoses were prevalent during this hospital stay: (1) GI bleed- Patient was admitted to the hospital for this reason. He underwent an EGD with Dr. Wray who noted the patient to have ulcers in his stomach. Biopsy and cauterization were performed. Patient was transfused with 2 units PRBC's and labs were monitored. Patient will await biopsy results. (2) TERRA (obstructive sleep apnea)- Patient has had this condition for several years and this can be evidenced on most recent echo, which shows high right heart pressures and a RVSP at rest of 47mmHg. Patient has his own home unit that is new within the last year. Patient continued to use home CPAP during his stay at the hospital and seems to be compliant. (3) Pulmonary hypertension- The most recent echo shows high right heart pressures and a RVSP at rest of 47mmHg. Patient appears to be on 2 medications for this including Chlorthalidone and Spironolactone daily dosing. Patient was continued on his home diuretics, and continued on discharge. (4) Anemia, posthemorrhagic, acute- Patient's H & H reached a low of 7.6 and 23 , so he was given 2 units of PRBCs per GI, Dr. Wray. For this reason, he stayed an extra night in the hospital to ensure he is stabilized. Disposition: Patient was stable at the time of discharge and was transported home via private car. He did not require oxygen and had no further signs of bleeding. - ALLERGIES Allergies/Adverse Reactions: Allergies Allergy/AdvReac Type Severity Reaction Status Date / Time No Known Drug Allergies Allergy Verified 08/20/17 18:46 - MEDICATIONS Home Medications: Ambulatory Orders Medication Instructions Recorded Confirmed Amlodipine Besylate 5 mg PO DAILY 08/20/17 08/21/17 Aspirin Chewable [[place] 81 mg PO DAILY 08/20/17 08/20/17 Aspirin] Cholecalciferol (Vitamin D3) 2,000 units PO DAILY 08/20/17 08/21/17 [Vitamin D3] Lactobacillus Acidophilus 1 each PO PRN PRN 08/20/17 08/20/17 [Probiotic Acidophilus] Lisinopril 40 mg PO QPM 08/20/17 08/21/17 Verapamil HCl [Verelan] 360 mg PO QPM 08/20/17 08/21/17 Ferrous Sulfate 325 mg PO BID #60 tablet 08/22/17 Pantoprazole [Protonix] 40 mg PO DAILY #30 tablet 08/22/17 Spironolactone 50 mg PO QPM #0 08/22/17 08/20/17 Sucralfate [Carafate] 1 gm PO BID #60 ml 08/22/17 Sucralfate [Carafate] 1 gm PO BID #60 ml 08/23/17 Sucralfate [Carafate] 10 ml PO BID #60 ml 08/23/17 Sucralfate [Carafate] 1 gm PO BID #600 ml 08/24/17 - PHYSICAL EXAM AT DISCHARGE General Appearance: positive: No acute distress, Alert Eyes Bilateral: positive: Normal inspection, PERRL ENT: positive: ENT inspection nml, Pharynx nml Neck: positive: Nml inspection, Thyroid nml, No JVD Respiratory: positive: Chest non-tender, No respiratory distress, Breath sounds nml Cardiovascular: positive: No gallop, Irregularly irregular, Bradycardia, Systolic murmur, Decreased pulse(s) Peripheral Pulses: positive: 1+ Abdomen: positive: Non-tender, Nml bowel sounds Back: positive: Nml inspection Skin: positive: No rash, Warm, Dry Extremities: positive: Non-tender, Full ROM, Nml appearance, Pedal edema, Joint swelling Neurologic/Psychiatric: positive: Oriented x3, CN's nml (2-12), Motor nml, Sensation nml, Depressed mood/affect Reflexes: Bicep (R): 2+, Bicep (L): 2+ - LABS Result Diagrams: 08/22/17 11:18 08/22/17 05:35 - FOLLOW UP Follow Up: Disposition: Home, Self Care Condition: Good Prescriptions: Ferrous Sulfate 325 mg PO BID #60 tablet Pantoprazole [Protonix] 40 mg PO DAILY #30 tablet Sucralfate [Carafate] 1 gm PO BID #60 ml Diet: Regular Activity Restrictions: No Restrictions Shower Restrictions: No Driving Restrictions: No Weight Bearing: Full Weight Instruction Topics: Bleeding Gastrointestinal Additional Instructions or Follow Up instructions: You were admitted for a GI bleed. You underwent GI procedures to find the source of bleeding. Biopsy and Cauterizations were performed, and these results are pending. You should plan to follow up with Dr. Wray in ~4 weeks. You should continue to take the proton pump inhibitor, and Carafate, Iron. You had an echocardiogram which shows that things have been stable since your last test in 2014. You should continue to use your CPAP. Please see your PCP within a week. - TIME SPENT Time Spent in Discharge (Minutes): 60
--- NOTE | 2017-08-22 08:50 | PROVIDER PROGRESS NOTE ---
Subjective - General Admit Date: 08/20/17 Procedure Date: 08/21/17 Post Op Days: 1 Procedure Performed: EGD with injection of bleeding gastric ulcer - Review of Systems General: positive: No symptoms All Other Systems: positive: Reviewed and negative Objective - Patient Data Vital Signs: Vital Signs x48h Temp Pulse Resp BP Pulse Ox 08/22/17 07:27 36.6 C 58 L 16 122/58 L 98 08/22/17 05:00 36.6 C 72 18 142/62 H 100 08/22/17 01:00 36.9 C 81 16 137/55 H 100 Weight: Weight 08/20/17 08/21/17 08/22/17 23:59 23:59 23:59 Weight (kg) 99 kg Intake & Output: Intake and Output Totals x24h 08/20/17 08/21/17 08/22/17 23:59 23:59 23:59 Intake Total 450 2374.333 1173.333 Output Total 725 1300 Balance 450 1649.333 -126.667 - Lab Results Lab Results: 08/22/17 05:35 08/22/17 05:35 Other Lab Results: Lab Results x24hrs 08/22/17 08/22/17 08/21/17 Range/Units 05:35 05:35 19:48 WBC 16.3 H (4.8-10.8) x10^3/uL RBC 3.27 L (4.70-6.10) 10^6/uL Hgb 9.6 L 10.0 L (14.0-18.0) g/dL Hct 28.6 L 29.8 L (42.0-52.0) % MCV 87.6 (80.0-94.0) fL MCH 29.5 (27.0-31.0) pg MCHC 33.7 (32.0-36.0) g/dL RDW 13.6 (12.0-15.0) % Plt Count 281 (130-450) 10^3/uL MPV 7.1 L (7.4-11.4) fL Sodium 134 L (135-145) mmol/L Potassium 4.3 (3.5-5.0) mmol/L Chloride 103 (101-111) mmol/L Carbon Dioxide 24 (21-32) mmol/L Anion Gap 7.0 (6-13) BUN 41 H (6-20) mg/dL Creatinine 1.1 (0.6-1.2) mg/dL Estimated GFR (MDRD) 67 L (>89) Glucose 138 H (70-100) mg/dL Calcium 8.5 (8.5-10.3) mg/dL - Current Medications Current Medications: Current Medications Generic Name Dose Route Start Last Admin Trade Name Freq PRN Reason Stop Dose Admin Amlodipine Besylate 5 mg 08/21/17 09:00 08/22/17 08:01 Norvasc PO 5 mg DAILY DEVORA Administration Potassium Chloride/Dextrose/Sod Cl 1,000 mls @ 100 mls/hr 08/20/17 20:00 07/11 05:16 D5.45ns W/20 Meq Kcl IV 100 mls/hr .Q10H DEVORA Administration Pantoprazole Sodium 40 mg 08/21/17 14:00 08/22/17 06:30 Protonix IVP 40 mg QDAC DEVORA Administration Sodium Chloride 10 ml 08/20/17 19:55 08/22/17 06:29 Normal Saline Flush 0.9% IVP 10 ml PRN PRN Administration NEEDED PER PROVIDER ORDERS Sodium Chloride 10 ml 08/21/17 01:00 08/22/17 08:02 Normal Saline Flush 0.9% IVP 10 ml 0100,0900,1700 DEVORA Administration Spironolactone 25 mg 08/21/17 21:00 08/21/17 21:07 Aldactone PO 25 mg QPM DEVORA Administration Sucralfate 1 gm 08/21/17 14:00 08/22/17 06:27 Carafate PO 1 gm 0700,1100,1600,2200 DEVORA Administration Impression/Plan - Problem List Problem List: s/p EGD with injection/cautery of bleeding gastric ulcer. HGB appears stable at 9.6. No c/o problems. Continue ppis Carafate Iron May d/c home if 11:00 Hgb is stable. Advance to bland diet. F/u in surgical clinic in 4 weeks.
[2017-08-22 11:23] LABS: HGB - HEMOGLOBIN 9.9 g/dL (14.0-18.0)
== END 2017-08-22 12:53 | disposition home or self-care (01) | DRG 378 ==
LOC: ED 18:37 → MS2 19:56
PROVIDERS: ADMIT Hospitalist; ATTEND Nurse Practitioner
PROC: 30233N1 Transfusion of Nonautologous Red Blood Cells into Peripheral Vein, Percutaneous Approach (ICD-10-PCS; 2017-08-20)
PROC: 0DB68ZX Excision of Stomach, Via Natural or Artificial Opening Endoscopic, Diagnostic (ICD-10-PCS; 2017-08-21)
PROC: 0W3P8ZZ Control Bleeding in Gastrointestinal Tract, Via Natural or Artificial Opening Endoscopic (ICD-10-PCS; principal; 2017-08-21 09:15)
DX: K25.4 Chronic or unspecified gastric ulcer with hemorrhage (principal); K92.1 Melena; R07.89 Other chest pain; R94.31 Abnormal electrocardiogram [ECG] [EKG]; I10 Essential (primary) hypertension; G47.30 Sleep apnea, unspecified; N17.9 Acute kidney failure, unspecified; D62 Acute posthemorrhagic anemia; I27.20 Pulmonary hypertension, unspecified; G47.33 Obstructive sleep apnea (adult) (pediatric); I12.9 Hypertensive chronic kidney disease with stage 1 through stage 4 chronic kidney disease, or unspecified chronic kidney disease; N18.1 Chronic kidney disease, stage 1; E86.0 Dehydration; Z79.82 Long term (current) use of aspirin
CPT/HCPCS: 36415; 36430; 80048; 80053; 83690; 84484; 85014; 85018; 85025; 85610; 86850; 86900; 86901; 86920; 88305; 93005; 93306; 96361; 96374; 99284; 99285

== ENCOUNTER 2017-08-29 08:00 | Outpatient (CLI) | payer MEDICARE, OTHER ==
[2017-08-30 11:07] LABS: BASOPHILS % (AUTO) 0.4 %; EOSINOPHILS # (AUTO) 0.2 10^3/uL (0.0-0.7); EOSINOPHILS % (AUTO) 2.2 %; HGB - HEMOGLOBIN 9.8 g/dL (14.0-18.0); LYMPHOCYTES # (AUTO) 2.9 10^3/uL (1.5-3.5); LYMPHOCYTES % (AUTO) 26.7 %; MEAN CORPUSCULAR HGB CONC 32.5 g/dL (32.0-36.0); MEAN CORPUSCULAR VOLUME 92.3 fL (80.0-94.0); MEAN PLATELET VOLUME 7.7 fL (7.4-11.4); MONOCYTES % (AUTO) 9.2 %; NEUTROPHILS # (AUTO) 6.8 10^3/uL (1.5-6.6); NEUTROPHILS % (AUTO) 61.5 %; PLT - PLATELET COUNT 420 10^3/uL (130-450); RED BLOOD COUNT 3.25 10^6/uL (4.70-6.10); RED CELL DISTRIBUTION WIDTH 15.1 % (12.0-15.0)
[2017-08-30 11:24] LABS: CALCIUM 8.6 mg/dL (8.5-10.3); CREATININE 1.5 mg/dL (0.6-1.2)
== END 2017-08-29 23:59 | disposition home or self-care (01) ==
LOC: LAB.F 08:00
PROVIDERS: ATTEND Family Medicine
DX: K27.0 Acute peptic ulcer, site unspecified, with hemorrhage (principal); Z51.81 Encounter for therapeutic drug level monitoring
CPT/HCPCS: 36415; 80048; 85025

== ENCOUNTER 2017-09-25 14:17 | Outpatient (CLI) | payer MEDICARE, OTHER ==
[2017-09-25 17:57] LABS: BASOPHILS % (AUTO) 0.2 %; EOSINOPHILS # (AUTO) 0.5 10^3/uL (0.0-0.7); EOSINOPHILS % (AUTO) 4.2 %; HGB - HEMOGLOBIN 14.2 g/dL (14.0-18.0); LYMPHOCYTES # (AUTO) 2.8 10^3/uL (1.5-3.5); LYMPHOCYTES % (AUTO) 26.2 %; MEAN CORPUSCULAR VOLUME 90.4 fL (80.0-94.0); MEAN PLATELET VOLUME 7.7 fL (7.4-11.4); MONOCYTES # (AUTO) 1.4 10^3/uL (0.0-1.0); MONOCYTES % (AUTO) 12.6 %; NEUTROPHILS # (AUTO) 6.2 10^3/uL (1.5-6.6); NEUTROPHILS % (AUTO) 56.8 %; PLT - PLATELET COUNT 404 10^3/uL (130-450); RED BLOOD COUNT 4.91 10^6/uL (4.70-6.10); RED CELL DISTRIBUTION WIDTH 13.8 % (12.0-15.0); WHITE BLOOD COUNT 10.9 x10^3/uL (4.8-10.8)
[2017-09-25 18:02] LABS: CALCIUM 9.8 mg/dL (8.5-10.3); CREATININE 1.3 mg/dL (0.6-1.2)
== END 2017-09-25 14:18 | disposition home or self-care (01) ==
LOC: LAB.F 14:17
PROVIDERS: ATTEND Family Medicine
DX: E87.6 Hypokalemia (principal); K27.0 Acute peptic ulcer, site unspecified, with hemorrhage
CPT/HCPCS: 36415; 80048; 85025

== ENCOUNTER 2017-10-22 08:56 | Day surgery (SDC) | payer MEDICARE, OTHER ==
[2017-10-22] MEDS ORDERED: LACTATED RINGERS 1,000 ML IV ONE (09:05)
[2017-10-22] MEDS ORDERED: LIDO GARGLE 30 ML BOTTLE ONE (10:27)
[2017-10-22] MEDS ORDERED: METHYLENE BLUE 0.5% 50 MG/10 ML AMPULE ONE (10:27)
[2017-10-22] MEDS ORDERED: fentaNYL 100 MCG/2 ML VIAL IVP ONE (10:37)
[2017-10-22] MEDS ORDERED: MIDAZOLAM 2 MG/2 ML VIAL IVP ONE (10:37)
[2017-10-22] MEDS ORDERED: LIDO GARGLE 30 ML BOTTLE TOP ONE (10:40)
[2017-10-22 11:34] VITALS: BP 110/59
== END 2017-10-22 08:57 | disposition home or self-care (01) ==
LOC: SDS 08:56
PROVIDERS: ATTEND Surgery
PROC: 0DB68ZX Excision of Stomach, Via Natural or Artificial Opening Endoscopic, Diagnostic (ICD-10-PCS; 2017-10-22)
PROC: 0DB48ZX Excision of Esophagogastric Junction, Via Natural or Artificial Opening Endoscopic, Diagnostic (ICD-10-PCS; principal; 2017-10-22 10:00)
DX: K29.70 Gastritis, unspecified, without bleeding (principal); K44.9 Diaphragmatic hernia without obstruction or gangrene
CPT/HCPCS: 43239; A9270; J7120; 88305

== ENCOUNTER 2018-01-20 12:39 | Outpatient (CLI) | payer OTHER ==
[2018-01-20 13:17] LABS: BASOPHILS # (AUTO) 0.1 10^3/uL (0.0-0.1); EOSINOPHILS # (AUTO) 0.1 10^3/uL (0.0-0.7); EOSINOPHILS % (AUTO) 1.5 %; HGB - HEMOGLOBIN 13.6 g/dL (14.0-18.0); LYMPHOCYTES # (AUTO) 2.8 10^3/uL (1.5-3.5); LYMPHOCYTES % (AUTO) 28.8 %; MEAN CORPUSCULAR HEMOGLOBIN 29.3 pg (27.0-31.0); MEAN CORPUSCULAR HGB CONC 33.1 g/dL (32.0-36.0); MEAN CORPUSCULAR VOLUME 88.4 fL (80.0-94.0); MONOCYTES # (AUTO) 0.8 10^3/uL (0.0-1.0); MONOCYTES % (AUTO) 8.7 %; NEUTROPHILS # (AUTO) 5.9 10^3/uL (1.5-6.6); PLT - PLATELET COUNT 352 10^3/uL (130-450); RED BLOOD COUNT 4.66 10^6/uL (4.70-6.10); RED CELL DISTRIBUTION WIDTH 14.7 % (12.0-15.0); WHITE BLOOD COUNT 9.8 x10^3/uL (4.8-10.8)
[2018-01-20 13:27] LABS: ALBUMIN/GLOBULIN RATIO 1.2 (1.0-2.2); CALCIUM 9.5 mg/dL (8.5-10.3); CREATININE 1.2 mg/dL (0.6-1.2); TOTAL PROTEIN 7.4 g/dL (6.7-8.2)
== END 2018-01-20 12:40 | disposition home or self-care (01) ==
LOC: LAB 12:39
PROVIDERS: ATTEND Family Medicine
DX: K27.0 Acute peptic ulcer, site unspecified, with hemorrhage (principal); E87.6 Hypokalemia; I10 Essential (primary) hypertension; K21.9 Gastro-esophageal reflux disease without esophagitis
CPT/HCPCS: 36415; 80053; 85025

== ENCOUNTER 2018-02-12 15:48 | Outpatient (CLI) | payer OTHER | END 2018-02-12 15:49 | disposition home or self-care (01) | LOC: SC 15:48 | PROVIDERS: ATTEND Nurse Practitioner Family | DX: G47.33 Obstructive sleep apnea (adult) (pediatric) (principal) | CPT/HCPCS: 99212; 99214 ==

== ENCOUNTER 2018-04-21 07:49 | Outpatient (CLI) | payer OTHER ==
[2018-04-21 08:03] LABS: BASOPHILS # (AUTO) 0.1 10^3/uL (0.0-0.1); BASOPHILS % (AUTO) 0.9 %; EOSINOPHILS # (AUTO) 0.3 10^3/uL (0.0-0.7); EOSINOPHILS % (AUTO) 4.3 %; HGB - HEMOGLOBIN 14.3 g/dL (14.0-18.0); LYMPHOCYTES # (AUTO) 2.4 10^3/uL (1.5-3.5); LYMPHOCYTES % (AUTO) 32.1 %; MEAN CORPUSCULAR HEMOGLOBIN 29.9 pg (27.0-31.0); MEAN CORPUSCULAR HGB CONC 33.6 g/dL (32.0-36.0); MEAN CORPUSCULAR VOLUME 89.1 fL (80.0-94.0); MEAN PLATELET VOLUME 6.8 fL (7.4-11.4); MONOCYTES # (AUTO) 0.8 10^3/uL (0.0-1.0); MONOCYTES % (AUTO) 10.1 %; NEUTROPHILS % (AUTO) 52.6 %; PLT - PLATELET COUNT 318 10^3/uL (130-450); RED BLOOD COUNT 4.78 10^6/uL (4.70-6.10); RED CELL DISTRIBUTION WIDTH 13.8 % (12.0-15.0); WHITE BLOOD COUNT 7.6 x10^3/uL (4.8-10.8)
[2018-04-21 08:16] LABS: ALBUMIN 4.2 g/dL (3.2-5.5); ALBUMIN/GLOBULIN RATIO 1.4 (1.0-2.2); BILIRUBIN,TOTAL 0.6 mg/dL (0.2-1.0); CALCIUM 9.1 mg/dL (8.5-10.3); CREATININE 1.2 mg/dL (0.6-1.2); TOTAL PROTEIN 7.1 g/dL (6.7-8.2)
== END 2018-04-21 07:50 | disposition home or self-care (01) ==
LOC: LAB 07:49
PROVIDERS: ATTEND Family Medicine
DX: K27.0 Acute peptic ulcer, site unspecified, with hemorrhage (principal); E87.6 Hypokalemia; I10 Essential (primary) hypertension; N28.9 Disorder of kidney and ureter, unspecified
CPT/HCPCS: 36415; 80053; 85025

== ENCOUNTER 2019-03-30 13:13 | Outpatient (CLI) | payer OTHER ==
[2019-03-30 14:24] VITALS: BP 130/50
--- NOTE | 2019-03-30 14:24 | SLEEP CARE CONSULTATION ---
Information from patient questionnaire entered by Danae Mancera. I have reviewed and concur with the information entered by Danae Mancera. This document represents the service I personally performed and the decisions made by me, Xena Guan, RN, MSN, [employer]IO [employer]ATION MANAGER. History of Present Illness Previous diagnosis: Severe, Obstructive Sleep Apnea-Hypopnea Syndrome AHI: 38.1 Reason for CPAP/BiPAP follow up: annual Equipment type: CPAP Equipment obtained from: [employer] Mask style: Nasal (Dreamwear) Mask brand: Respironics Backup mask available: Yes Last cushion change: he rotates 4 cushions and replaces all every two months Prior sleep studies: Yes Year and Where: 2016 [facility] additional information: Trazadone added to assist him to stay asleep and working well. CPAP Compliance Data - Data Reviewed with Patient Average duration of nightly device use: 7 hrs 30 min Compliance rate %: 99 Current pressure setting (cmH2O): 12-16 Humidity setting: auto Heated hose settin Average residual AHI: 0.7 Average large leak: 0.2 liters per minute Subjective Missed days of use due to: reports: other (POWER OUTAGE) Patient concerns: reports: mask leak noise (nightly), nasal congestion, dry mouth, nose, throat (mild - adjusting humidity and heated hose. ), other (mask dislodging ). denies: aerophagia, mask discomfort, air blowing in eyes, mariscal nsation in mask/hose (seeing ENT - not interferring with CPAP use), epistaxis Observed to snore while using device: No Current pressure setting perceived as: comfortable On therapy, patient: reports: sleeping better, awakening more refreshed, being more awake and alert during the day, more rested overall. denies: drowsiness while driving Initial [place] Sleepiness Scale score: 6 Current [place] Sleepiness Scale score: 2 Allergies and Home Medications Known drug allergies: Yes (codiene) Home medication list reviewed: Yes Allergy and home medication list: Medication Name (generic/name brand) Strength & Dosage Verapamil HCL ER 360mg cap one daily Lisinopril 40mg tab [facility] at [facility] Vitamin D3 2000Unit cap one daily Amlodipine Besylate 5mg tab one daily Chlorthalidone 25mg tab one daily in the morning Spironolactone 25mg tab one daily Centrum Silver 50+ Men Tab one daily Pantoprazole Sodium 40mg tab one daily trazadone 50mg 1/2 tab nightly Allergies: Codeine, Bee Stings, Elmo Pollen Review of Systems Review of systems same as previous: No (Undergoing ENT evaluation for possible surgery due to chronic nasal congest) Physical Exam Blood Pressure: 130/50 Cuff size: long Heart Rate: 62 O2 Saturation: 96 Height: 5 ft 6.25 in Weight: 220 lb 12.8 oz Body Mass Index: 35.4 BMI Classification: Obesity Class 2 Impression and Plan 1. Obstructive Sleep Apnea-Hypopnea Syndrome, very severe, with good treatment compliance and good apnea control. On CPAP therapy, the patient has better sleep quality and is more rested overall. For patient concerns about being without CPAP during power outages, I ordered a CPAP battery as more convenient then using a generator as would have to rewire house for CPAP use in bedroom. He is also afraid the generator would run out of gas before morning. To reduce mask dislodging during sleep, I will order the new headgear adaptor. He is to contact if this is not available so I can contact the rep. To reduce oral oral dryness, I advised him to try the manual humidity again and start with 5 setting and increase as needed. Patient's apnea severity and rationale for treatment to reduce apnea, improve sleep quality and reduce cardiovascular and cerebrovascular events was reviewed. I also reviewed the benefit of consistent device use of CPAP for his hypertension. * Continue CPAP pressure at 12-16 cmH2O * CPAP battery * Headgear adaptor * Notify me if snoring with mask or feeling that the pressure is too much or too little * Attempt to lose weight * Return for follow up in 1 year , or sooner if concerns arise I spent 100% of this 35 minute visit face to face with the patient with greater than 50% of this was spent time counseling the patient and coordination of care.
== END 2019-03-30 13:14 | disposition home or self-care (01) ==
LOC: SC 13:13
PROVIDERS: ATTEND Nurse Practitioner Family
DX: G47.33 Obstructive sleep apnea (adult) (pediatric) (principal); E66.9 Obesity, unspecified; Z68.35 Body mass index [BMI] 35.0-35.9, adult
CPT/HCPCS: 99212; 99214

== ENCOUNTER 2019-06-12 07:11 | Outpatient (CLI) | payer OTHER ==
[2019-06-12 10:29] LABS: ALBUMIN 4.1 g/dL (3.2-5.5); ALBUMIN/GLOBULIN RATIO 1.5 (1.0-2.2); ALKALINE PHOSPHATASE 36 IU/L (42-121); ALT ALANINE AMINOTRANSFERASE 24 IU/L (10-60); AST ASPARTATE AMINOTRANSFERASE 17 IU/L (10-42); BILIRUBIN,TOTAL 0.5 mg/dL (0.2-1.0); BUN - BLOOD UREA NITROGEN 34 mg/dL (6-20); CALCIUM 9.2 mg/dL (8.5-10.3); CARBON DIOXIDE - CO2 29 mmol/L (21-32); CHLORIDE 102 mmol/L (101-111); CHOL/HDL RATIO 4.8 (<5.0); CHOLESTEROL 160 mg/dL; CREATININE 1.6 mg/dL (0.6-1.2); GFR - MDRD 43 (>89); GLUCOSE 119 mg/dL (70-100); HDL CHOLESTEROL 33 mg/dL; LDL CHOLESTEROL,CALCULATED 91 mg/dL; LDL/HDL RATIO 2.8 (<3.6); SODIUM 140 mmol/L (135-145); TOTAL PROTEIN 6.9 g/dL (6.7-8.2); VLDL CHOLESTEROL 36 mg/dL
== END 2019-06-12 07:12 | disposition home or self-care (01) ==
LOC: LAB.S 07:11
PROVIDERS: ATTEND Internal Medicine
DX: Z00.00 Encounter for general adult medical examination without abnormal findings (principal); Z12.5 Encounter for screening for malignant neoplasm of prostate
CPT/HCPCS: 36415; 80053; 80061; 83721; 84153

== ENCOUNTER 2020-12-07 09:12 | Outpatient (CLI) | payer MEDICARE, OTHER ==
--- NOTE | 2020-12-07 10:11 | SLEEP CARE CONSULTATION ---
Information from patient questionnaire entered by Elzbieta Caruso. I have reviewed and concur with the information entered by Elzbieta Caruso. This document represents the service I personally performed and the decisions made by , Jennifer Seo ARNP. History of Present Illness Service Date and Time: 12/07/2020 0912 Previous diagnosis: Severe, Obstructive Sleep Apnea-Hypopnea Syndrome AHI: 38.1 (in 2017)(82.4 in 2007) Reason for follow up: annual (last seen 03/2019) Equipment type: CPAP Equipment obtained from: [employer] (not using them; gets supplies at [employer]; difficult to deal with) Mask style: Nasal Mask brand: Respironics (Dreamwear) Backup mask available: Yes (old mask) Last cushion change: rotates through 3 Prior sleep studies: Yes Year and Where: 2016 and 2007 - [facility] Type of Sleep Study: Polysomnography HPI additional information: JOHN LOPEZ was diagnosed to have severe, AHI 38.1, obstructive sleep apnea- hypopnea syndrome and returned today for CPAP therapy annual follow-up. CPAP Compliance Data - Data Reviewed with Patient Average duration of nightly device use: 7 hr 32 min Compliance rate %: 98 (180 days) Current pressure setting (cmH2O): 12-16 (median 12.2, avg 12.9, max 13.5) Humidity settin Average residual AHI: 1.1 Subjective Patient concerns: reports: mask leak noise (shifts on face), dry mouth, nose, throat (dry mouth, thinks it is from his meds). denies: aerophagia, mask discomfort, air blowing in eyes, condensation in mask/hose, nasal congestion, epistaxis, other Observed to snore while using device: No Current pressure setting perceived as: too high On therapy, patient: reports: sleeping better, awakening more refreshed, being more awake and alert during the day, more rested overall. denies: drowsiness while driving Initial [place] Sleepiness Scale score: 13 (in 2007) Current [place] Sleepiness Scale score: 3 Allergies and Home Medications Home medication list reviewed: Yes (1/2 lisinopril, stopped asa and pantoprazole) Review of Systems Review of systems same as previous: Yes (no changes) Physical Exam Heart Rate: 49 O2 Saturation: 98 Height: 5 ft 6.25 in Weight: 191 lb Weight change since last visit: 29 lb loss Body Mass Index: 30.6 BMI Classification: Obese Impression and Plan 1. Obstructive Sleep Apnea-Hypopnea Syndrome, severe, with good treatment compliance and good apnea control. On CPAP therapy, the patient has better sleep quality and is more rested overall. He states his pressure feels like it is too much since losing 29 pounds. I will decrease his APAP pressure to 10-12 cmH2O. Patient will let me know if the change in pressure is uncomfortable or if he develops aerophagia. Patient asking about replacing machine but he is not eligible until 2021. He voiced understanding and agreement with plan of care. Patient's apnea severity and rationale for treatment to reduce apnea, improve sleep quality and reduce cardiovascular and cerebrovascular events was reviewed. I also reviewed the benefit of consistent device use of CPAP for hypertension. * Change auto CPAP pressure to 10-12 cmH2O * Notify me if snoring with mask or feeling that the pressure is too much or too little * Continue to try to lose weight * Call this office if any problems using CPAP * Return for follow up in 1 year, or sooner if concerns arise Counseling Topics: Spare mask, Weight loss health impact Visit Type: In Office Time Spent with Patient (minutes): 27 Provider Statement: I spent 100% of the Face to Face Visit with the patient with greater than 50% spent counseling the patient and coordination of care.
== END 2020-12-07 09:13 | disposition home or self-care (01) ==
LOC: SC 09:12
PROVIDERS: ATTEND Nurse Practitioner Family
DX: G47.33 Obstructive sleep apnea (adult) (pediatric) (principal); E66.9 Obesity, unspecified; Z68.30 Body mass index [BMI] 30.0-30.9, adult
CPT/HCPCS: 99213; G0463; 99212

== ENCOUNTER 2021-01-18 08:11 | Outpatient (CLI) | payer MEDICARE, OTHER ==
[2021-01-18 14:24] LABS: BASOPHILS % (AUTO) 0.3 %; EOSINOPHILS # (AUTO) 0.2 10^3/uL (0.0-0.7); EOSINOPHILS % (AUTO) 2.3 %; HCT - HEMATOCRIT 43.2 % (42.0-52.0); HGB - HEMOGLOBIN 14.1 g/dL (14.0-18.0); LYMPHOCYTES # (AUTO) 3.4 10^3/uL (1.5-3.5); LYMPHOCYTES % (AUTO) 32.6 %; MEAN CORPUSCULAR HGB CONC 32.6 g/dL (32.0-36.0); MEAN CORPUSCULAR VOLUME 94.9 fL (80.0-94.0); MEAN PLATELET VOLUME 9.7 fL (7.4-11.4); MONOCYTES # (AUTO) 1.3 10^3/uL (0.0-1.0); NEUTROPHILS # (AUTO) 5.4 10^3/uL (1.5-6.6); NEUTROPHILS % (AUTO) 52.2 %; PLT - PLATELET COUNT 339 10^3/uL (130-450); RED BLOOD COUNT 4.55 10^6/uL (4.70-6.10); RED CELL DISTRIBUTION WIDTH 13.6 % (12.0-15.0); WHITE BLOOD COUNT 10.4 x10^3/uL (4.8-10.8)
[2021-01-18 15:13] LABS: ALBUMIN 4.4 g/dL (3.2-5.5); ALBUMIN/GLOBULIN RATIO 1.5 (1.0-2.2); ALKALINE PHOSPHATASE 49 IU/L (42-121); ALT ALANINE AMINOTRANSFERASE 25 IU/L (10-60); AST ASPARTATE AMINOTRANSFERASE 19 IU/L (10-42); BILIRUBIN,TOTAL 0.6 mg/dL (0.2-1.0); BUN - BLOOD UREA NITROGEN 38 mg/dL (6-20); CALCIUM 9.8 mg/dL (8.5-10.3); CARBON DIOXIDE - CO2 27 mmol/L (21-32); CHLORIDE 102 mmol/L (101-111); CHOLESTEROL 176 mg/dL; CREATININE 1.5 mg/dL (0.6-1.2); GFR - MDRD 46 (>89); GLUCOSE 104 mg/dL (70-100); HDL CHOLESTEROL 44 mg/dL; LDL CHOLESTEROL,CALCULATED 110 mg/dL; LDL/HDL RATIO 2.5 (<3.6); POTASSIUM 4.2 mmol/L (3.5-5.0); SODIUM 138 mmol/L (135-145); TOTAL PROTEIN 7.3 g/dL (6.7-8.2); TRIGLYCERIDES 111 mg/dL; VLDL CHOLESTEROL 22 mg/dL
== END 2021-01-18 08:12 | disposition home or self-care (01) ==
LOC: LAB.S 08:11
PROVIDERS: ATTEND Internal Medicine
DX: I10 Essential (primary) hypertension (principal); Z12.5 Encounter for screening for malignant neoplasm of prostate
CPT/HCPCS: 36415; 80053; 80061; 85025; G0103; 83721; 84153

== ENCOUNTER 2021-12-29 08:27 | Outpatient (CLI) | payer MEDICARE, OTHER ==
--- NOTE | 2021-12-29 16:32 | Ultrasound Report ---
PROCEDURE: Aorta Screening INDICATIONS: EX SMOKER TECHNIQUE: Real time scanning was performed of the aorta and iliac arteries, with image documentatio n. COMPARISON: None FINDINGS: Aorta: Proximal aortic diameter measures 2.4 x 2.3 cm. Mid-aorta measures 2.0 x 2.0 cm. Distal aor tic diameter is 1.9 x 1.7 cm. Iliac arteries: Right common iliac artery measures 0.4 x 1.3 cm. Left common iliac artery measures 2.3 x 1.2 cm. IMPRESSION: No abdominal aortic aneurysm. Reviewed by: Kelsi Fitch MD, PhD on 12/29/2021 4:31 PM PDT Approved by: Kelsi Fitch MD, PhD on 12/29/2021 4:31 PM PDT Station ID: [id number]
== END 2021-12-29 08:28 | disposition home or self-care (01) ==
LOC: DI 08:27
PROVIDERS: ATTEND Nurse Practitioner Family
DX: Z13.6 Encounter for screening for cardiovascular disorders (principal); Z87.891 Personal history of nicotine dependence

== ENCOUNTER 2022-01-24 07:41 | Outpatient (CLI) | payer MEDICARE, OTHER ==
[2022-01-24 14:40] LABS: BASOPHILS # (AUTO) 0.1 10^3/uL (0.0-0.1); BASOPHILS % (AUTO) 0.6 %; EOSINOPHILS # (AUTO) 0.2 10^3/uL (0.0-0.7); HCT - HEMATOCRIT 43.7 % (42.0-52.0); HGB - HEMOGLOBIN 14.4 g/dL (14.0-18.0); LYMPHOCYTES # (AUTO) 3.1 10^3/uL (1.5-3.5); MEAN CORPUSCULAR VOLUME 94.2 fL (80.0-94.0); MEAN PLATELET VOLUME 9.4 fL (7.4-11.4); MONOCYTES # (AUTO) 1.2 10^3/uL (0.0-1.0); NEUTROPHILS # (AUTO) 4.4 10^3/uL (1.5-6.6); NEUTROPHILS % (AUTO) 48.8 %; PLT - PLATELET COUNT 344 10^3/uL (130-450); RED BLOOD COUNT 4.64 10^6/uL (4.70-6.10); RED CELL DISTRIBUTION WIDTH 13.5 % (12.0-15.0); WHITE BLOOD COUNT 8.9 x10^3/uL (4.8-10.8)
[2022-01-24 15:29] LABS: ALBUMIN 4.1 g/dL (3.2-5.5); ALBUMIN/GLOBULIN RATIO 1.5 (1.0-2.2); ALKALINE PHOSPHATASE 40 IU/L (42-121); ALT ALANINE AMINOTRANSFERASE 24 IU/L (10-60); AST ASPARTATE AMINOTRANSFERASE 18 IU/L (10-42); BILIRUBIN,TOTAL 0.6 mg/dL (0.2-1.0); BUN - BLOOD UREA NITROGEN 31 mg/dL (6-20); CARBON DIOXIDE - CO2 31 mmol/L (21-32); CHLORIDE 103 mmol/L (101-111); CHOL/HDL RATIO 3.9 (<5.0); CHOLESTEROL 161 mg/dL; CREATININE 1.2 mg/dL (0.6-1.2); GFR - MDRD 60 (>89); GLUCOSE 99 mg/dL (70-100); HDL CHOLESTEROL 41 mg/dL; LDL CHOLESTEROL,CALCULATED 92 mg/dL; LDL/HDL RATIO 2.2 (<3.6); POTASSIUM 3.9 mmol/L (3.5-5.0); SODIUM 138 mmol/L (135-145); TOTAL PROTEIN 6.8 g/dL (6.7-8.2); TRIGLYCERIDES 139 mg/dL; VLDL CHOLESTEROL 28 mg/dL
== END 2022-01-24 07:42 | disposition home or self-care (01) ==
LOC: LAB.S 07:41
PROVIDERS: ATTEND Nurse Practitioner Family
DX: R97.20 Elevated prostate specific antigen [PSA] (principal); E78.5 Hyperlipidemia, unspecified; I10 Essential (primary) hypertension; D53.9 Nutritional anemia, unspecified
CPT/HCPCS: 36415; 80053; 80061; 83721; 84153; 85025

== ENCOUNTER 2022-04-03 09:01 | Outpatient (CLI) | payer MEDICARE, OTHER ==
--- NOTE | 2022-04-03 08:57 | SLEEP CARE CONSULTATION ---
Information from patient questionnaire entered by Mari Brink. I have reviewed and concur with the information entered by Mari Brink. This document represents the service I personally performed and the decisions made by me, Jennifer Seo ARNP. History of Present Illness Service Date and Time: 04/03/2022 0840 Previous diagnosis: Severe, Obstructive Sleep Apnea-Hypopnea Syndrome AHI: 38.1 (in 2016)(82.4 in 2007) Reason for follow up: first compliance after device update (SET UP 01/24/22) Equipment type: CPAP (RESMED; January 2022) Equipment obtained from: [employer] ([employer]) Mask style: Nasal Mask brand: Respironics ([employer]) Backup mask available: Yes (old mask) Last cushion change: 2 weeks Prior sleep studies: Yes Year and Where: 2016 and 2007 - [facility] Sleep Type of Sleep Study: Polysomnography HPI additional information: JOHN LOPEZ was diagnosed to have severe, AHI 38.1, obstructive sleep apnea- hypopnea syndrome and returns via video telehealth visit today for CPAP therapy first compliance after updating device follow-up. Sleep Study - Results Type of Sleep Study: Polysomnography Prior sleep studies: Yes Year and Where: 2016 and 2007 - [facility] Sleep CPAP Compliance Data - Data Reviewed with Patient Average duration of nightly device use: 8 hours, 10 minutes Compliance rate %: 98 (02/01/22 to 04/01/22; 59/60 days used) Current pressure setting (cmH2O): 10-12 Average residual AHI: 1.3 Subjective Patient concerns: reports: other (velcro comes loose and leaks sometimes). denies: aerophagia, mask discomfort, air blowing in eyes, mask leak noise, condensation in mask/hose, nasal congestion, dry mouth, nose, throat, epistaxis Observed to snore while using device: No Current pressure setting perceived as: comfortable On therapy, patient: reports: sleeping better, awakening more refreshed, being more awake and alert during the day, more rested overall. denies: drowsiness while driving Initial [place] Sleepiness Scale score: 13 (in 2007) Current [place] Sleepiness Scale score: 4 (04/03/22) Allergies and Home Medications Drug allergies reviewed: Yes (codeine) Home medication list reviewed: Yes (Rosuvastatin 5 mg daily) Allergy and home medication list: Allergies codeine Adverse Reaction (Verified 10/21/17 14:05) Hallucinations Review of Systems Review of systems same as previous: Yes (no changes) Physical Exam Vital signs obtained and entered by: [employer] Height: 5 ft 7 in Weight: 205 lb (pt reported) Body Mass Index: 32.1 BMI Classification: Obese Impression and Plan 1. Obstructive Sleep Apnea-Hypopnea Syndrome, severe, with good treatment compliance and good apnea control. On CPAP therapy, the patient has better sleep quality and is more rested overall. Patient has significant improvement of their sleep apnea and are satisfied with current CPAP therapy. Patient denies pro blems with oral dryness, nasal congestion, epistaxis, skin irritation or aerophagia. Patient voiced that he will continue with CPAP use and we will see him again next year. Patient's apnea severity and rationale for treatment to reduce apnea, improve sleep quality and reduce cardiovascular and cerebrovascular events was reviewed. I also reviewed the benefit of consistent device use of CPAP for hypertension. 2. Obesity, unspecified. Currently patients BMI is 32.1. Obesity increases the risk of apnea, CPAP pressure requirements and overall health risks especially cardiovascular and diabetes. Thus patient is advised to lose weight. * Continue auto CPAP pressure at 10-12 cmH2O * Notify me if snoring with mask or feeling that the pressure is too much or too little * Attempt to lose weight * Call this office if any problems using CPAP * Return for follow up in 1 year, or sooner if concerns arise Counseling Topics: Spare mask, Weight loss health impact Visit Type: Telehealth Video ([email or web address]) Video Type: Doximity Patient Location: Home Location of Provider: Office Patient agrees and consents to this telehealth visit type: Yes Patient agrees to have their insurance billed: Yes Time Spent with Patient (minutes): 20 Provider Statement: I spent 100% of the Telehealth Video Call with the patient with greater than 50% spent counseling the patient and coordination of care.
== END 2022-04-03 09:02 | disposition home or self-care (01) ==
LOC: SC 09:01
PROVIDERS: ATTEND Nurse Practitioner Family
DX: G47.33 Obstructive sleep apnea (adult) (pediatric) (principal); E66.9 Obesity, unspecified; Z68.32 Body mass index [BMI] 32.0-32.9, adult

== ENCOUNTER 2024-02-27 10:54 | Outpatient (CLI) | payer MEDICARE, OTHER ==
--- NOTE | 2024-02-27 13:03 | XRAY Report ---
PROCEDURE: Chest 2V INDICATIONS: DYSPNEA ON EXERTION TECHNIQUE: 2 views of the chest were acquired. COMPARISON: None. FINDINGS: Surgical changes and devices: None. Lungs and pleura: No pleural effusions or pneumothorax. Lungs are clear. Mediastinum: Mediastinal contours appear normal. Heart size is mildly enlarged. Bones and chest wall: No suspicious bony lesions. Overlying soft tissues appear unremarkable. IMPRESSION: Mild cardiomegaly. No acute pulmonary process. Reviewed by: Bradley Michelle MD on 02/27/2024 1:02 PM PDT Approved by: Bradley Michelle MD on 02/27/2024 1:02 PM PDT Station ID: [id number]
== END 2024-02-27 10:55 | disposition home or self-care (01) ==
LOC: DI.S 10:54
PROVIDERS: ATTEND Nurse Practitioner Family
DX: R06.09 Other forms of dyspnea (principal); I51.7 Cardiomegaly

== ENCOUNTER 2024-02-27 12:22 | Outpatient (CLI) | payer MEDICARE, OTHER | END 2024-02-27 12:23 | disposition home or self-care (01) | LOC: RT 12:22 | PROVIDERS: ATTEND Nurse Practitioner Family | DX: R06.09 Other forms of dyspnea (principal); I51.7 Cardiomegaly | CPT/HCPCS: 93005 ==

== ENCOUNTER 2024-03-09 10:57 | Outpatient (CLI) | payer MEDICARE, OTHER | END 2024-03-09 10:58 | disposition home or self-care (01) | LOC: RT 10:57 | PROVIDERS: ATTEND Nurse Practitioner Family | DX: R06.09 Other forms of dyspnea (principal); Z87.891 Personal history of nicotine dependence | CPT/HCPCS: 94010; 94727; 94729 ==

== ENCOUNTER 2024-03-13 09:07 | Outpatient (CLI) | payer MEDICARE, OTHER | END 2024-03-13 09:08 | disposition home or self-care (01) | LOC: DI 09:07 | PROVIDERS: ATTEND Nurse Practitioner Family | DX: R06.09 Other forms of dyspnea (principal); R00.1 Bradycardia, unspecified | CPT/HCPCS: 93307 ==